=== PATIENT | female | born 1955 | race Caucasian/White ===

== ENCOUNTER 2017-06-19 07:54 | Outpatient (CLI) | payer OTHER | END 2017-06-19 07:56 | disposition home or self-care (01) | LOC: RX STUDY 07:54 | DX: K44.9 Diaphragmatic hernia without obstruction or gangrene (principal) ==

== ENCOUNTER 2017-09-15 11:27 | Inpatient (IN) | payer OTHER ==
[~2017-09-15] VITALS: Ht 167.6 cm; Wt 64.4 kg
[2017-09-23] MEDS ORDERED: HYZAAR 50-12.51 EACH PO (12:47)
[2017-09-23] MEDS ORDERED: ATIVAN1 M1 PO (12:48)
[2017-09-23] MEDS ORDERED: FOMAX PO (12:48)
[2017-09-23] MEDS ORDERED: ZOLOFT25 MG (12:49)
[2017-09-23] MEDS ORDERED: [UNRECOGNIZED DRUG - OTHER] PO (12:49)
[2017-09-23] MEDS ORDERED: OSTERA TABLET1 EACH PO (12:50)
[2017-09-23] MEDS ORDERED: ZANTAC150 M3 PO (12:50)
[2017-09-23] MEDS ORDERED: M.V.I. ADULT10 ML IV (12:50)
[2017-09-23] MEDS ORDERED: CALCIUM600 MG PO (12:51)
[2017-09-23] MEDS ORDERED: COLAGEN PO (12:51)
== END 2017-10-01 17:20 | disposition home or self-care (01) | DRG 328 ==
LOC: O/R 09-30 06:00 → SURG 09-30 07:00 → OB/GYN 09-30 13:17 → SURG 09-30 13:17
PROVIDERS: Surgery
PROC: 0DS64ZZ Reposition Stomach, Percutaneous Endoscopic Approach (ICD-10-PCS; 2017-09-30)
PROC: 0DV44ZZ Restriction of Esophagogastric Junction, Percutaneous Endoscopic Approach (ICD-10-PCS; 2017-09-30)
PROC: 0WQF4ZZ Repair Abdominal Wall, Percutaneous Endoscopic Approach (ICD-10-PCS; 2017-09-30)
PROC: 0DJ08ZZ Inspection of Upper Intestinal Tract, Via Natural or Artificial Opening Endoscopic (ICD-10-PCS; 2017-09-30)
PROC: 0BUT4JZ Supplement Diaphragm with Synthetic Substitute, Percutaneous Endoscopic Approach (ICD-10-PCS; principal; 2017-09-30 07:00)
DX: K44.9 Diaphragmatic hernia without obstruction or gangrene (principal); K31.89 Other diseases of stomach and duodenum; K42.9 Umbilical hernia without obstruction or gangrene; K40.90 Unilateral inguinal hernia, without obstruction or gangrene, not specified as recurrent

== ENCOUNTER → 2017-09-23 | Outpatient (CLI) | payer OTHER ==
[~2017-09-23] MED LIST: ATIVAN1 M1 PO; CALCIUM600 MG PO; COLAGEN PO; FOMAX PO; HYZAAR 50-12.51 EACH PO; M.V.I. ADULT10 ML IV; OSTERA TABLET1 EACH PO; ZANTAC150 M3 PO; ZOLOFT25 MG; [UNRECOGNIZED DRUG - OTHER] PO
== END | disposition home or self-care (01) ==
LOC: EKG 08:48
DX: K44.9 Diaphragmatic hernia without obstruction or gangrene (principal)